=== PATIENT | male | born 1995 | race Caucasian/White ===

== ENCOUNTER 2022-07-24 19:06 | Emergency (ER) | payer OTHER, SELFPAY ==
--- NOTE | ~2022-07-24 | XR_ITS ---
EXAMINATION: XR chest 2V DATE: 07/24/2022 19:51 INDICATION: Cough. TECHNIQUE: Frontal and lateral views of the chest were obtained on 3 radiographs. COMPARISON: None. FINDINGS: The chest demonstrates clear lungs without pneumonia, pleural effusion, or pneumothorax. Th e heart size is normal. IMPRESSION: 1. No acute cardiopulmonary disease. Reviewed, dictated and finalized at location A.
[2022-07-24 19:15] VITALS: BP 157/75; PULSE 78; RESP 18; TEMP 36.8; O2SAT 100
--- NOTE | 2022-07-24 19:39 | ED.BACK ---
HPI - Back Pain/Injury General Chief Complaint: Back Pain/Injury <ARJUN Mar Last Filed: 07/25/22 02:10> Stated Complaint: back/side pain <ARJUN Mar Last Filed: 07/25/22 02:10> Time Seen by Provider: 07/24/22 19:27 <ARJUN Mar Last Filed: 07/25/22 02:10> History of Present Illness HPI Narrative: Patient is a 27-year-old healthy male here for evaluation of cough over the past 3 weeks. Patient states cough is productive in nature. He saw his primary care provider upon onset of the cough, was given cough suppressants and was told to follow-up in office if not better. Patient attempted to make an follow-up appointment but was unable to get into the office until later this month. Patient presents today due to concerns of continued cough, in addition to new onset right-sided rib/back pain. Pain is atraumatic in nature, worse with cough. Additionally notes some difficulty breathing when he has his coughing fits. He denies any chest pain, fevers or chills, leg swelling. He has not had a chest x-ray since symptom onset and has not had a COVID test. <ARJUN Mar Last Filed: 07/25/22 02:10> Related Data Allergies/Adverse Reactions: Allergies Allergy/AdvReac Type Severity Reaction Status Date / Time cephalexin Allergy Mild Unknown Verified 07/24/22 19:31 <ARJUN Mar Last Filed: 07/25/22 02:10> Review of Systems Review of Systems: Gen: Denies fevers or chills Eyes: Denies eye pain or visual change ENT: Denies congestion Respiratory: Reports cough and occasional shortness of breath CV: Denies chest pain or palpitations GI: Denies abdominal pain nausea, emesis or diarrhea : denies burning, urgency, frequency or hematuria Musculoskeletal: Reports back pain. Neuro: Denies numbness, tingling, weakness or focal weakness Skin: Denies rash Except as documented, all other systems reviewed and negative <ARJUN Mar Last Filed: 07/25/22 02:10> Exam Narrative: APPEARANCE: Well appearing, no pain in distress, well-nourished. Head: Normocephalic and atraumatic. EYES: PERRLA/EOMI, conjunctivae clear NOSE: No nasal drainage EARS: External ear normal in appearance THROAT: Oropharynx is clear. Mucous membranes are moist. NECK: Supple. No adenopathy, no masses. RESPIRATORY: Airway patent, respirations nonlabored. Clear to auscultation bilaterally, no rales, rhonchi, wheezing. CARDIOVASCULAR: Regular rate and rhythm without murmurs, rubs, or gallops. ABDOMINAL: Normoactive bowel sounds. Soft, nontender, nondistended. No rebound tenderness or guarding. MUSCULOSKELETAL: No tenderness to palpation of area of pain. Extremities are warm and well-perfused. Moves all extremities well. No edema. NEURO: Normal speech. No focal neurologic deficits. SKIN: Skin is warm and dry. No rashes. PSYCHIATRIC: Normal affect/mood.. <Keri Davies PA-C - Last Filed: 07/25/22 02:10> Course CORRECTIONAL OFFICER/PA Physician Supervision I discussed this patient with ILYA Davies. I agree with the assessment and plan as documented. <Tremaine Hough MD - Last Filed: 07/25/22 11:27> Vital Signs Vital signs: Vital Signs Temperature 98.2 F 07/24/22 19:15 Pulse Rate 78 07/24/22 19:15 Respiratory Rate 18 07/24/22 19:15 Blood Pressure 157/75 H 07/24/22 19:15 Pulse Oximetry 100 07/24/22 19:15 Temperature 98.7 F 07/24/22 21:48 Pulse Rate 82 07/24/22 21:48 Respiratory Rate 16 07/24/22 21:48 Blood Pressure 133/82 07/24/22 21:48 Pulse Oximetry 100 07/24/22 21:48 <Keri Dvaies PA-C - Last Filed: 07/25/22 02:10> Vital Signs Temperature 98.2 F 07/24/22 19:15 Pulse Rate 78 07/24/22 19:15 Respiratory Rate 18 07/24/22 19:15 Blood Pressure 157/75 H 07/24/22 19:15 Pulse Oximetry 100 07/24/22 19:15 Temperature 98.7 F 07/24/22 21:48 Pulse Rate 82 10
[2022-07-24] MEDS: BENZONATATE 100 MG CAPSULE PO (20:04)
[2022-07-24 20:07] LABS: Basophils Absolute Auto 0.1 K/mm3 (0.0-0.1); Basophils Percent Auto 0.8 % (0.2-1.2); Eosinophils Absolute Auto 0.3 K/mm3 (0-0.3); Eosinophils Percent Auto 3.4 % (0-4.4); Hematocrit 42.6 % (42.0-52.0); Hemoglobin 14.5 g/dL (14.0-18.0); Immature Granulocyte Percent A 1.3 % (0-0.5); Lymphocytes Absolute Auto 2.57 K/mm3 (0.9-3.2); Lymphocytes Percent Auto 33.2 % (18.3-44.2); Mean Corpuscular Hemoglobin 28.2 pg (26-34); Mean Corpuscular Volume 82.7 fl (80-100); Monocytes Absolute Auto 0.5 K/mm3 (0.1-0.6); Monocytes Percent Auto 6.1 % (2.6-8.5); Neutrophils Absolute Auto 4.3 K/mm3 (1.3-6.7); Neutrophils Percent Auto 55.2 % (45.5-73.1); Platelet Count Result 204 k/mm3 (150-375); Red Blood Count 5.15 M/mm3 (4.6-6.20); Red Cell Distribution Width 12.5 % (11.5-14.5); White Blood Count 7.7 K/mm3 (4.5-10.0)
[2022-07-24 20:16] LABS: Alanine Aminotransferase 47 U/L (6-50); Albumin Level 4.6 g/dL (3.5-5.1); Alkaline Phosphatase 56 U/L (38-126); Anion Gap 12 mmol/L (8-16); Aspartate Amino Transferase 33 U/L (17-59); Bilirubin,Total 0.5 mg/dL (0.2-1.3); Blood Urea Nitrogen 15 mg/dL (9-20); Calcium 9.3 mg/dL (8.4-10.2); Carbon Dioxide 28 mmol/L (22-30); Chloride 103 mmol/L (98-107); Estimated CRCL calculation 129 ml/min; Estimated Glomerular Filt Rate > 60; Glucose 102 mg/dL (65-110); Potassium 3.5 mmol/L (3.4-5.0); Sodium 143 mmol/L (137-145)
[2022-07-24 20:31] VITALS: BP 128/88; PULSE 73; RESP 17; O2SAT 99
[2022-07-24] MEDS: KETOROLAC 30 MG/ML VIAL (*BKC) IM (20:43)
[2022-07-24] MEDS: LIDOCAINE 5% PATCH 1 PATCH TRANSDERM (20:48)
[2022-07-24 21:48] VITALS: BP 133/82; PULSE 82; RESP 16; TEMP 37.1; O2SAT 100
== END 2022-07-24 21:50 | disposition home or self-care (01) ==
LOC: ANHED 21:12
PROVIDERS: Physician Assistant; Emergency Provider Preventive Medicine Aerospace Medicine
DX: J40 Bronchitis, not specified as acute or chronic (principal)
CPT/HCPCS: 36415; 71046; 80053; 85025; 96372; 99283; A9270; J1885